=== PATIENT | male | born 1935 | race Caucasian/White ===

== ENCOUNTER 2016-12-30 02:41 | Day surgery (SDCO) | payer MEDICARE, OTHER ==
[2016-12-30 03:02] LABS: BASOPHIL 0.2 % (0-2); EOSINOPHIL 2.4 % (0-7); HCT 38.1 % (42.0-52.0); HGB 12.7 g/dl (13.2-18.0); LYMPHOCYTE 24.4 % (15-48); MCH 30.6 pg (25.0-31.0); MCHC 33.3 g/dL (32.0-36.0); MCV 91.8 fL (78.0-100.0); MONOCYTE 11.7 % (0-12); MPV 8.8 fL (6.0-9.5); NEUTROPHIL 61.3 % (41-80); PLT 258 K/uL (150-400); RBC 4.15 M/uL (4.70-6.00); RDW 13.7 % (11.5-14.0); WBC 9.9 K/uL (4.0-10.5)
[2016-12-30 03:14] LABS: PTT 29.6 SECONDS (23.2-31.4)
[2016-12-30 03:15] LABS: D-DIMER 3.4 ug/mLFEU (0.00-0.41); INR 1.03 (0.9-1.2); PROTHROMBIN TIME 13.1 SECONDS (11.7-14.0)
[2016-12-30 03:21] LABS: CKMB 1.03 ng/mL (0.97-4.94); MYOGLOBIN 44 ng/mL (26-65); PRO-BNP 383 pg/mL (0-450); TROPONIN T < 0.010 ng/mL
[2016-12-30 03:22] LABS: ALBUMIN 4.3 g/dL (3.4-4.8); BILIRUBIN - TOTAL 0.5 mg/dL (0.1-1.0); CREATININE 1.8 mg/dL (0.7-1.2); GLOBULIN (CALCULATION) 3.5 g/dL (2.2-4.2); MAGNESIUM 1.91 mg/dL (1.40-2.10); POTASSIUM 4.1 mmol/L (3.5-5.1); TOTAL PROTEIN 7.8 g/dL (6.4-8.3)
[2016-12-30 07:35] LABS: TROPONIN T < 0.010 ng/mL
[2016-12-30 12:32] LABS: TROPONIN T < 0.010 ng/mL
== END 2016-12-31 16:56 | disposition home or self-care (01) ==
LOC: FER 02:41 → FMS 13:30
PROVIDERS: Emergency Medicine Emergency Medical Services; Internal Medicine Cardiovascular Disease; ADMIT Internal Medicine
DX: R07.9 Chest pain, unspecified (principal); I25.10 Atherosclerotic heart disease of native coronary artery without angina pectoris; I12.9 Hypertensive chronic kidney disease with stage 1 through stage 4 chronic kidney disease, or unspecified chronic kidney disease; N18.9 Chronic kidney disease, unspecified; K21.9 Gastro-esophageal reflux disease without esophagitis; J84.10 Pulmonary fibrosis, unspecified; E78.5 Hyperlipidemia, unspecified; Z98.41 Cataract extraction status, right eye; Z98.42 Cataract extraction status, left eye; Z98.890 Other specified postprocedural states; Z87.891 Personal history of nicotine dependence; Z79.899 Other long term (current) drug therapy; Z79.82 Long term (current) use of aspirin
CPT/HCPCS: 36415; 71010; 71250; 78579; 78580; 80053; 82550; 82553; 83690; 83735; 83874; 83880; 84484; 85025; 85379; 85610; 85730; 93005; 96372; A9539; A9540; G0378; J2270; J2405

== ENCOUNTER 2017-01-04 19:38 | Emergency (ER) | payer MEDICARE, OTHER ==
[2017-01-04 20:20] LABS: CKMB 1.53 ng/mL (0.97-4.94); MYOGLOBIN 99 ng/mL (26-65); PRO-BNP 330 pg/mL (0-450); TROPONIN T < 0.010 ng/mL
[2017-01-04 20:22] LABS: ALBUMIN 4.2 g/dL (3.4-4.8); BILIRUBIN - TOTAL 0.4 mg/dL (0.1-1.0); GLOBULIN (CALCULATION) 4.3 g/dL (2.2-4.2); POTASSIUM 4.4 mmol/L (3.5-5.1); TOTAL PROTEIN 8.5 g/dL (6.4-8.3)
[2017-01-04 20:23] LABS: MAGNESIUM 1.87 mg/dL (1.40-2.10)
[2017-01-04 20:25] LABS: BASOPHIL 0.3 % (0-2); EOSINOPHIL 1.1 % (0-7); HCT 37.2 % (42.0-52.0); HGB 12.8 g/dl (13.2-18.0); LYMPHOCYTE 26.2 % (15-48); MCH 31.5 pg (25.0-31.0); MCHC 34.4 g/dL (32.0-36.0); MCV 91.6 fL (78.0-100.0); MONOCYTE 10.8 % (0-12); MPV 9.1 fL (6.0-9.5); NEUTROPHIL 61.6 % (41-80); PLT 284 K/uL (150-400); RBC 4.06 M/uL (4.70-6.00); RDW 13.4 % (11.5-14.0)
[2017-01-04 20:29] LABS: INR 1.03 (0.9-1.2); PROTHROMBIN TIME 13.1 SECONDS (11.7-14.0); PTT 29.5 SECONDS (23.2-31.4)
[2017-01-05 00:05] LABS: CKMB 1.01 ng/mL (0.97-4.94); TROPONIN T < 0.010 ng/mL
== END 2017-01-05 01:34 | disposition home or self-care (01) ==
LOC: FER 19:38
PROVIDERS: Emergency Medicine Emergency Medical Services
DX: R07.89 Other chest pain (principal); R06.02 Shortness of breath; I44.4 Left anterior fascicular block; I11.9 Hypertensive heart disease without heart failure; I25.10 Atherosclerotic heart disease of native coronary artery without angina pectoris; K21.9 Gastro-esophageal reflux disease without esophagitis; E78.5 Hyperlipidemia, unspecified; Z79.899 Other long term (current) drug therapy; Z98.61 Coronary angioplasty status
CPT/HCPCS: 36415; 71010; 80053; 82550; 82553; 83735; 83874; 83880; 84484; 85025; 85610; 85730; 93005; J1170; J2270; J2405; J2930

== ENCOUNTER 2022-01-13 03:22 | Emergency (ER) | payer MEDICARE, OTHER ==
[2022-01-13] MEDS ORDERED: VIBRAMYCIN100 MG PO (04:48)
== END 2022-01-13 05:10 | disposition home or self-care (01) ==
LOC: FER 03:22
DX: S01.81XA Laceration without foreign body of other part of head, initial encounter (principal); S01.01XA Laceration without foreign body of scalp, initial encounter; I69.331 Monoplegia of upper limb following cerebral infarction affecting right dominant side; I69.311 Memory deficit following cerebral infarction; Z23 Encounter for immunization; W01.0XXA Fall on same level from slipping, tripping and stumbling without subsequent striking against object, initial encounter; Y92.009 Unspecified place in unspecified non-institutional (private) residence as the place of occurrence of the external cause
CPT/HCPCS: 12051; 70450; 72125; 73501; 90471; 90715

== ENCOUNTER 2022-05-09 08:59 | Emergency (ER) | payer MEDICARE, OTHER ==
[~2022-05-09 08:59] MED LIST: VIBRAMYCIN100 MG PO
[2022-05-09 10:23] LABS: BASOPHIL 0.6 % (0-2); EOSINOPHIL 1.5 % (0-7); HCT 34.8 % (42.0-52.0); HGB 11.4 g/dl (13.2-18.0); LYMPHOCYTE 19.4 % (15-48); MCH 31.4 pg (25.0-31.0); MCHC 32.8 g/dL (32.0-36.0); MCV 95.9 fL (78.0-100.0); MONOCYTE 7.9 % (0-12); MPV 9.3 fL (6.0-9.5); NEUTROPHIL 70.3 % (41-80); NRBC 0; PLT 220 K/uL (150-400); RBC 3.63 M/uL (4.70-6.00); RDW 13.1 % (11.5-14.0); WBC 7.1 K/uL (4.0-10.5)
[2022-05-09 10:46] LABS: INR 1.41 (0.9-1.2); PROTHROMBIN TIME 16.8 SECONDS (11.9-13.9); PTT 32.2 SECONDS (24.9-34.6)
[2022-05-09 10:54] LABS: ALBUMIN 2.7 g/dL (3.4-5.0); BILIRUBIN - TOTAL 0.4 mg/dL (0.2-1.0); BUN/CREAT RATIO (CALC) 13.1 RATIO; CREATININE 2.22 mg/dL (0.67-1.17); POTASSIUM 4.5 mmol/L (3.5-5.1); TOTAL PROTEIN 7.7 g/dL (6.4-8.2)
[2022-05-09 10:59] LABS: LACTIC ACID 2.6 mmol/L (0.4-1.9)
[2022-05-09 11:11] LABS: CORONAVIRUS 2019 SARS-COV-2 NEGATIVE (NEGATIVE); INFLUENZA A NAA NEGATIVE (NEGATIVE)
[2022-05-09 13:45] LABS: FT4 (FREE T4) 1.2 ng/dL (0.76-1.46)
[2022-05-09] MEDS ORDERED: TOPROL XL25 MG PO (14:27)
== END 2022-05-09 15:05 | disposition home or self-care (01) ==
LOC: FER 08:59
PROVIDERS: Emergency Medicine
DX: I95.9 Hypotension, unspecified (principal); Z86.73 Personal history of transient ischemic attack (TIA), and cerebral infarction without residual deficits; Z79.01 Long term (current) use of anticoagulants; Z20.822 Contact with and (suspected) exposure to COVID-19
CPT/HCPCS: 36415; 71045; 80053; 83605; 84145; 84439; 84443; 84484; 85025; 85610; 85730; 87040; 93005; J7030; U0002